=== PATIENT | male | born 1950 | race Caucasian/White ===

== ENCOUNTER 2024-10-28 08:40 | Emergency (ER) | payer MEDICARE, BC, SELFPAY ==
[2024-10-28 08:42] VITALS: BP 142/83; PULSE 59; RESP 18; TEMP 36.6; O2SAT 98
[2024-10-28 08:54] VITALS: RESP 16
--- NOTE | 2024-10-28 09:00 | DI.US_ITS ---
Exam(s) US LOWER EXTREMITY VENOUS LT EXAM: US LOWER EXTREMITY VENOUS LT CLINICAL HISTORY: New prominent varicose veins TECHNIQUE: Grayscale, color, and doppler imaging of the deep venous system of the left lower extremity was performed. COMPARISON: No exams were available for comparison FINDINGS: There is no evidence of intraluminal thrombus and there is normal compression and augmentation demonstrated within the common femoral vein, femoral vein, and popliteal vein. In the ipsilateral calf the interrogated veins also exhibit normal compression/ augmentation properties. The ipsilateral saphenofemoral junction is patent. IMPRESSION: 1. No evidence of DVT in the left lower extremity. DATA REPOSITORY:
--- NOTE | 2024-10-28 09:23 | ED.GENADUL_ITS ---
Discharge Plan Disposition Patient Disposition: Home Condition: Stable Discharge Details Clinical Impression: Varicose veins of both lower extremities Primary Care Provider: Noelle,Local ED Provider: Kale Berger Home Meds and New Rx's Prescriptions: No Action No Known Home Meds Discharge Instructions Instructions: Varicose Veins (DC) Additional Instructions: Ultrasound does not reveal any evidence of DVT. Examination is consistent with varicose veins. Please watch for new or worsening symptoms and return immediately to the ER. Otherwise I would contact your primary care provider to make them aware of your ER visit and ongoing symptoms. Referral to vascular may be indicated if you would like to discuss any potential surgical intervention. Discharge Data Discharge Date/Time-TO BE ENTERED AT DEPARTURE: 10/28/24 12:32 HPI General Mode of arrival: ambulatory . Date/Time Provider Initiated Documentation: 10/28/24 08:49 . Limitations to Documentation: no limitations . Information obtained by: patient . History of Present Illness 74 year old M presents to the emergency department with the chief complaint of Left leg swelling, described as mild, with intensity rated at 2. Quality is described as other (Swelling, no pain), and is localized to the left and lower extremity. Patient reports no radiation. Patient started experiencing this week(s) (4) and it has been constant. No relieving factors improve symptom(s), No exacerbating factors reported . Patient notes no other symptoms.. Patient did receive the following treatments prior to arrival, none Related Data Home Medications ?Medication ?Instructions ?Recorded ?Confirmed Unknown [No Known Home Meds] 10/28/24 0 10/28/24 Allergies Allergy/AdvReac Type Severity Reaction Status Date / Time No Known Allergies Allergy Verified 10/28/24 09:17 General Stated Complaint: Vascular JANIS: 3 Review of Systems Constitutional Constitutional: Denies fever(s) Cardiovascular Cardiovascular: Denies chest pain and Denies dyspnea Respiratory Respiratory: Denies cough and Denies dyspnea Musculoskeletal Musculoskeletal: Denies arthralgias, Denies numbness and Denies tingling Integumentary/Breasts Skin/Breast: Denies rash Neurologic Neurologic: Denies numbness and Denies tingling Hematologic/Lymphatic Hematologic/Lymphatic: Denies easy bleeding and Denies easy bruising Exam Const General: cooperative, healthy appearing, comfortable and no acute distress Orientation: alert and awake [facility] Head: normal to inspection, normocephalic and atraumatic Face and sinus: normal facial exam Mouth: moist mucous membranes Eyes General: appearance normal, both eyes and all related structures Conjunctivae: conjunctivae normal Neck Neck: normal visual inspection, full ROM, trachea midline and supple Resp Effort & Inspection: normal respiratory effort and able to speak in complete sentences Auscultation: clear to auscultation bilaterally Cardio Rate: regular rate Rhythm: regular rhythm GI Palpation: soft and nontender Back/Spine/Pelvis Back: No back tenderness Skin General skin exam: no rashes or lesions noted Neuro General: patient alert, patient awake, moves all extremities and no focal motor deficits Cognition: normal cognition Speech: speech normal Gait: normal gait Motor: muscle tone normal throughout Sensory Exam: no sensory deficits noted Extrem General: full ROM and capillary refill normal Other: Bilateral lower extremity varicose veins. Most notably about the left upper medial leg. Nontender. Without erythema, induration, fluctuance, discharge. Easily compressed. Calf is soft, nontender. No lower extremity swelling. Psych Appearance: grossly normal Mental Status: mental status grossly normal Course Vital Signs Vital signs: Vital Signs Temperature 36.6 C 10/28/24 08:42 Pulse 59 L 10/28/24 08:42 Respiratory Rate 18 10/28/24 08:42 Blood Pressure 142/83 H 10/28/24 08:42 Pulse Oximetry 98 10/28/24 08:42 Temperature 36.6 C 10/28/24 08:42 Pulse 59 L 10/28/24 08:42 Respiratory Rate 16 10/28/24 08:54 Respiratory Effort Normal 10/28/24 08:54 Respiratory Depth Normal 10/28/24 08:54 Respiratory Pattern Normal 10/28/24 08:54 Blood Pressure 142/83 H 10/28/24 08:42 Pulse Oximetry 98 10/28/24 08:42 Pain Level 0 10/28/24 08:54 Medical Decision Making Otherwise healthy 74-year-old male presents with worsening varicose veins over his left lower extremity, noticed about 1 month ago. Describes extensive vascular history with his father requiring dilatation. Patient states he had extensive vascular workup about 15 years ago at [facility] which was unremarkable. He remains quite active. He has chronic varicose veins which seem to have gotten worse. He would just like reassurance that this is not arterial and that there is no DVT. Clinically he appears very well. Exam is consistent with nontender varicose veins. Extremely low suspicion for DVT or acute arterial etiology. Discussed options with patient, he is hopeful for ultrasound today. Ultrasound ordered. No medication for lab work. Left lower extremity venous ultrasound read by radiology as no evidence of DVT. Discussed in length with patient. Patient relieved by the negative ultrasound. He has no additional questions or concerns today and is comfortable with discharge. Will contact his PCP to discuss his ER visit and ongoing symptoms. He is undecided if he will pursue a vascular consult. Encouraged to watch for new, worsening, or evolving symptoms and return immediately to the ER. PFSH All Active Problems (Updated 10/28/24 @ 12:23 by BLU Jarquin) Varicose veins of both lower extremities (Acute) Social History Smoking/Tobacco Use Status: Never Smoking risk assessment performed?: Yes Alcohol Intake: never Drug use: Never Substance use type: does not use Housing: house Do you feel safe at home: Yes Do you feel safe in your relationship?: Yes
[2024-10-28 10:14] VITALS: BP 113/78; PULSE 55; RESP 12; O2SAT 98
[2024-10-28 12:30] VITALS: BP 128/76; PULSE 62; RESP 16; O2SAT 100
== END 2024-10-28 12:32 | disposition home or self-care (01) ==
PROVIDERS: Emergency Provider Physician Assistant
DX: I83.93 Asymptomatic varicose veins of bilateral lower extremities (principal)
CPT/HCPCS: 99284; 93971; 99283